=== PATIENT | female | born 1945 | race American Indian/Alaskan Native ===

== ENCOUNTER 2016-10-26 21:27 | Inpatient (IN) | payer MEDICARE ==
[2016-10-27 00:12] LABS: Bilirubin,Urine NEG (Negative); Blood,Urine NEG (Negative); Ketones,Urine TR mg/dL (Negative); Leukocyte Esterase,Urine TR (Negative); Nitrite,Urine NEG (Negative); Protein,Urine <15 mg/dL mg/dL (Negative); Urobilinogen,Urine < 2.0 mg/dL (<2.0)
[2016-10-27 00:22] LABS: Anion Gap 17 mmol/L; BUN/Creatinine Ratio 23.33; Blood Urea Nitrogen 14 mg/dL (7-17); Calcium 9.1 mg/dL (8.4-10.2); Carbon Dioxide 25 mmol/L (22-30); Glucose 107 mg/dL (65-100); Potassium 4.1 mmol/L (3.6-5.0); Sodium 138 mmol/L (137-145)
[2016-10-27 00:26] LABS: RBC,Urine < 1.0 /HPF (0.0-6.0)
[2016-10-27 00:36] LABS: Basophils % (Auto) 0.8 % (0.0-1.8); Eosinophils % (Auto) 0.5 % (0.0-4.3); Hematocrit 37.1 % (30.3-42.9); Hemoglobin 12.1 gm/dl (10.1-14.3); Mean Corpuscular HGB Conc 33 % (30-34); Mean Corpuscular Hemoglobin 28 pg (28-32); Mean Corpuscular Volume 85 fl (79-97); Platelet Count 296 K/mm3 (140-440); Red Blood Count 4.38 M/mm3 (3.65-5.03); Red Cell Distribution Width 13.7 % (13.2-15.2); White Blood Count 9.6 K/mm3 (4.5-11.0)
--- NOTE | 2016-10-27 00:50 | Emergency Department Report ---
HPI - General Chief Complaint: Weakness Time Seen by Provider: 10/27/16 00:22 - HPI HPI: Room 5 Patient is 71-year-old female presenting with chief complaint of weakness. The patient states she was at her [employer] outdoors all day during a parade when she began to feel hot and diaphoretic. Patient states she felt weak this lasted several minutes until she was removed from the heat and had a cold rag placed on her neck. Patient states she gradually began to feel better. Patient denied ever having chest pain or pain of any type. Patient admits she did not drink water throughout the day. Patient currently denies any complaints Location: [see above] Duration: Minutes Quality: Weakness Severity: Moderate Modifying factors: [see above] Context: [see above] Mode of transportation: [not driving] ED Past Medical Hx - Past Medical History Previous Medical History?: Yes Additional medical history: high cholesterol - Surgical History Past Surgical History?: Yes Additional Surgical History: bilateral foot bunions - Family History Family history: no significant - Social History Smoking Status: Never Smoker Substance Use Type: Alcohol (occasional) - Medications Home Medications: Home Medications Medication Instructions Recorded Confirmed Last Taken Type Fexofenadine/Pseudoephedrine 1 mg PO DAILY 10/26/16 10/26/16 10/25/16 History [Meredith-D 24 Hour Tablet] ED Review of Systems ROS: Stated complaint: GENERAL WEAKNESS, FATIGUE Other details as noted in HPI Comment: All other systems reviewed and negative Constitutional: diaphoresis, weakness Eyes: denies: eye pain, eye discharge, vision change ENT: denies: ear pain, throat pain Respiratory: denies: cough, shortness of breath, wheezing Cardiovascular: denies: chest pain, palpitations Endocrine: no symptoms reported Gastrointestinal: denies: abdominal pain, nausea, diarrhea Genitourinary: denies: urgency, dysuria, discharge Musculoskeletal: denies: back pain, joint swelling, arthralgia Skin: denies: rash, lesions Neurological: denies: headache, weakness, paresthesias Psychiatric: denies: anxiety, depression Hematological/Lymphatic: denies: easy bleeding, easy bruising Physical Exam - Physical Exam Vital Signs: Vital Signs 10/26/16 22:10 Temperature 98.1 F Pulse Rate 77 Respiratory 20 Rate Blood Pressure 125/72 [Left] O2 Sat by Pulse 99 Oximetry Physical Exam: GENERAL: The patient is well-developed well-nourished female lying on stretcher not appearing to be in acute distress. [] HEENT: Normocephalic. Atraumatic. Extraocular motions are intact. Patient has moist mucous membranes. NECK: Supple. Trachea midline CHEST/LUNGS: Clear to auscultation. There is no respiratory distress noted. HEART/CARDIOVASCULAR: Regular. There is no tachycardia. There is no gallop rub or murmur. ABDOMEN: Abdomen is soft, nontender. Patient has normal bowel sounds. There is no abdominal distention. SKIN: There is no rash. There is no edema. There is no diaphoresis. NEURO: The patient is awake, alert, and oriented. The patient is cooperative. The patient has normal speech. Cranial nerves II through XII grossly intact, no drift MUSCULOSKELETAL: There is no evidence of acute injury. ED Course Vital Signs 10/26/16 22:10 Temperature 98.1 F Pulse Rate 77 Respiratory 20 Rate Blood Pressure 125/72 [Left] O2 Sat by Pulse 99 Oximetry ED Medical Decision Making - Lab Data Result diagrams: 10/27/16 00:28 10/26/16 23:53 Laboratory Tests 10/26/16 10/26/16 10/26/16 23:53 23:53 Unknown WBC RBC Hgb Hct MCV MCH MCHC RDW Plt Count Lymph % (Auto) Crowley % (Auto) Eos % (Auto) Baso % (Auto) Lymph # Crowley # Eos # Baso # Seg Neutrophils % Seg Neutrophils # Sodium 138 Potassium 4.1 Chloride 100.0 Carbon Dioxide 25 Anion Gap 17 BUN 14 Creatinine 0.6 L Estimated GFR > 60 BUN/Creatinine Ratio 23.33 Glucose 107 H Calcium 9.1 Total Creatine Kinase 160 H CK-MB (CK-2) 4.1 H CK-MB (CK-2) Rel Index 2.5 Troponin T 0.108 H* Urine Color Yellow Urine Turbidity Clear Urine pH 6.0 Ur Specific Noti 1.012 Urine Protein <15 mg/dl Urine Glucose (UA) Neg Urine Ketones Tr Urine Blood Neg Urine Nitrite Neg Urine Bilirubin Neg Urine Urobilinogen < 2.0 Ur Leukocyte Esterase Tr Urine WBC (Auto) 3.0 Urine RBC (Auto) < 1.0 10/27/16 00:28 WBC 9.6 RBC 4.38 Hgb 12.1 Hct 37.1 MCV 85 MCH 28 MCHC 33 RDW 13.7 Plt Count 296 Lymph % (Auto) 15.0 Crowley % (Auto) 7.8 H Eos % (Auto) 0.5 Baso % (Auto) 0.8 Lymph # 1.4 Crowley # 0.8 Eos # 0.1 Baso # 0.1 Seg Neutrophils % 75.9 H Seg Neutrophils # 7.3 Sodium Potassium Chloride Carbon Dioxide Anion Gap BUN Creatinine Estimated GFR BUN/Creatinine Ratio Glucose Calcium Total Creatine Kinase CK-MB (CK-2) CK-MB (CK-2) Rel Index Troponin T Urine Color Urine Turbidity Urine pH Ur Specific Noti Urine Protein Urine Glucose (UA) Urine Ketones Urine Blood Urine Nitrite Urine Bilirubin Urine Urobilinogen Ur Leukocyte Esterase Urine WBC (Auto) Urine RBC (Auto) - EKG Data -: EKG Interpreted by Me EKG shows normal: sinus rhythm Rate: normal - EKG Data When compared to previous EKG there are: previous EKG unavailable Interpretation: other (no ischemic changes seen) - Differential Diagnosis heat Exhaustion, dehydration, ACS, dysrhythmia Critical care attestation.: If time is entered above; I have spent that time in minutes in the direct care of this critically ill patient, excluding procedure time. ED Disposition Clinical Impression: Heat exhaustion, Elevated troponin Disposition: DISCHARGED TO HOME OR SELFCARE Is pt being admited?: Yes Does the pt Need Aspirin: Yes Condition: Fair Instructions: Heat Exhaustion (ED), Fatigue (ED) Additional Instructions: Continue to drink plenty of fluids. Return to the emergency department immediately should you develop worsening symptoms, fever, inability to tolerate food or liquid or any other concerns. Referrals: PRIMARY CARE, [Primary Care Provider] - 3-5 Days Time of Disposition: 01:09 (hospitalist notified)
[2016-10-27 00:57] LABS: Creatine Kinase MB 4.1 ng/mL (0.0-4.0)
[2016-10-27] MEDS ORDERED: ASPIRIN PO ONE (01:09)
[2016-10-27] MEDS ORDERED: ZOFRAN IV PRN (01:32)
[2016-10-27] MEDS ORDERED: SODIUM CHLORIDE FLUSH SYRINGE 10 ML IV PRN (01:32)
[2016-10-27] MEDS ORDERED: DUONEB 0.5 MG-3 MG/3 ML SOLN IH PRN (01:32)
[2016-10-27] MEDS ORDERED: MILK OF MAGNESIA PO PRN (01:32)
[2016-10-27] MEDS ORDERED: TYLENOL PO PRN (01:32)
[2016-10-27] MEDS ORDERED: DULCOLAX PR PRN (01:32)
--- NOTE | 2016-10-27 01:38 | History and Physical Report ---
History of Present Illness Chief complaint: I felt sick, and nearly passed out History of present illness: 71 YO Female with HTN, HLD presents to ED for evaluation. Pt states that she was attending an outdoors event all day during a parade and subsequently became dizzy, sweaty, hot, and nearly passed out. Pt states that symptoms lasted for several minutes and resolved after she was removed from the heat, and had a cold rag placed on her neck. Patient states she gradually began to feel better. Patient denied ever having chest pain or pain of any type. Patient admits she did not drink water throughout the day. Patient currently denies fever, chills, CP, palpitations, NVD, recent ill contacts, prolonged immobility/ travel, leg swelling, calf pain, individual/family history of DVT/PE. Pt seen and evaluated in ED and found to have elevated troponin consistent with NSTEMI. Past History Past Medical History: hypertension, hyperlipidemia Past Surgical History: No surgical history, Other (reviewed) Social history: single. denies: smoking, alcohol abuse, prescription drug abuse Family history: hypertension Medications and Allergies Allergies Allergy/AdvReac Type Severity Reaction Status Date / Time celery Allergy Unknown Verified 10/26/16 21:47 Home Medications Medication Instructions Recorded Confirmed Last Taken Type Fexofenadine/Pseudoephedrine 1 mg PO DAILY 10/26/16 10/26/16 10/25/16 History [Meredith-D 24 Hour Tablet] Active Meds: Active Medications Acetaminophen (Tylenol) 650 mg PO Q4H PRN PRN Reason: Pain MILD(1-3)/Fever >100.5/BOSHC Albuterol/Ipratropium (Duoneb 0.5 Mg-3 Mg/3 Ml Soln) 1 ampul IH Q6HRT PRN PRN Reason: Wheezing Bisacodyl (Dulcolax) 10 mg DE QDAY PRN PRN Reason: Constipation unrelieved by MOM Magnesium Hydroxide (Milk Of Magnesia) 30 ml PO Q4H PRN PRN Reason: Constipation Ondansetron HCl (Zofran) 4 mg IV Q8H PRN PRN Reason: N/V unrelieved by Reglan Sodium Chloride (Sodium Chloride Flush Syringe 10 Ml) 10 ml IV PRN PRN PRN Reason: LINE FLUSH Review of Systems All systems: negative Constitutional: other (dizziness, weakness) Exam - Constitutional Vitals: Temp Pulse Resp BP Pulse Ox 98.1 F 78 20 115/71 99 10/26/16 22:10 10/27/16 00:52 10/26/16 22:10 10/27/16 00:52 10/26/16 22:10 General appearance: Present: mild distress, cachectic - EENT Eyes: Present: PERRL ENT: hearing intact, clear oral mucosa - Neck Neck: Present: supple, normal ROM - Respiratory Respiratory effort: normal Respiratory: bilateral: CTA - Cardiovascular Heart Sounds: Present: S1 & S2. Absent: rub, click - Extremities Extremities: pulses symmetrical, No edema Peripheral Pulses: within normal limits - Abdominal General gastrointestinal: Present: soft, non-tender, non-distended, normal bowel sounds Female genitourinary: Present: normal - Integumentary Integumentary: Present: clear, warm, dry - Musculoskeletal Musculoskeletal: gait normal, strength equal bilaterally - Psychiatric Psychiatric: appropriate mood/affect, intact judgment & insight - Neurologic Neurologic: CNII-XII intact, moves all extremities Results - Labs CBC & Chem 7: 10/27/16 00:28 10/26/16 23:53 Labs: Abnormal lab results 10/26/16 10/26/16 10/27/16 Range/Units 23:53 23:53 00:28 [place] % (Auto) 7.8 H (0.0-7.3) % Seg Neutrophils % 75.9 H (40.0-70.0) % Creatinine 0.6 L (0.7-1.2) mg/dL Glucose 107 H (65-100) mg/dL Total Creatine Kinase 160 H (30-135) units/L CK-MB (CK-2) 4.1 H (0.0-4.0) ng/mL Troponin T 0.108 H* (0.00-0.029) ng/mL Assessment and Plan - Patient Problems (1) NSTEMI (non-ST elevated myocardial infarction) Current Visit: Yes Status: Acute Plan to address problem: Serial Cardiac enzymes, ekg, telemetry, d dimer, echo, stress test, cardiology consulted, lovenox (2) HTN (hypertension) Current Visit: Yes Status: Acute Qualifiers: Hypertension type: H Plan to address problem: copntrolled, monitor bp q shift, continue current therapy (3) HLD (hyperlipidemia) Current Visit: Yes Status: Acute Qualifiers: Hyperlipidemia type: H Plan to address problem: continue statin therapy, low cholesterol diet (4) Malnutrition Current Visit: Yes Status: Acute Plan to address problem: encourage increased protein intake (5) DVT prophylaxis Current Visit: Yes Status: Acute
[2016-10-27] MEDS ORDERED: PROVENTIL IH PRN (01:41)
[2016-10-27 08:26] LABS: Creatine Kinase MB 3.6 ng/mL (0.0-4.0)
[2016-10-27] MEDS ORDERED: LEXISCAN IV ONE ×2 (09:01→09:11)
--- NOTE | 2016-10-27 09:58 | Consultation ---
History of Present Illness Consult date: 10/27/16 Consult reason: syncope History of present illness: Pt seen and evaluated in stress lab Impression Acute vasovagal syncopal episode likely from heat exhaustion/dehydration Pt is now asymptomatic, no history of chest pain ECG sinus without ischemic change Nonspecific troponin elevation HTN Hyperlipidemia Plan Nuclear stress this AM, await completion Past History Past Medical History: hypertension, hyperlipidemia Past Surgical History: No surgical history, Other (reviewed) Social history: single. denies: smoking, alcohol abuse, prescription drug abuse Family history: hypertension Medications and Allergies Allergies Allergy/AdvReac Type Severity Reaction Status Date / Time celery Allergy Unknown Verified 10/26/16 21:47 Home Medications Medication Instructions Recorded Confirmed Last Taken Type Fexofenadine/Pseudoephedrine 1 mg PO DAILY 10/26/16 10/26/16 10/25/16 History [Meredith-D 24 Hour Tablet] Active Meds: Active Medications Acetaminophen (Tylenol) 650 mg PO Q4H PRN PRN Reason: Pain MILD(1-3)/Fever >100.5/BOSCH Albuterol (Proventil) 2.5 mg IH Q6HRT PRN PRN Reason: Shortness Of Breath Bisacodyl (Dulcolax) 10 mg ND QDAY PRN PRN Reason: Constipation unrelieved by MOM Enoxaparin Sodium (Lovenox) 50 mg 1 mg/kg (50 mg) SUB-Q Q12HR JACY Loratadine/Pseudoephedrine Sulfate (Claritin-D 24hr) 1 each PO Q24HR JACY Magnesium Hydroxide (Milk Of Magnesia) 30 ml PO Q4H PRN PRN Reason: Constipation Ondansetron HCl (Zofran) 4 mg IV Q8H PRN PRN Reason: N/V unrelieved by Reglan Pneumococcal Polyvalent Vaccine (Pneumovax 23) 0.5 ml IM .ONCE ONE Stop: 10/27/16 12:01 Sodium Chloride (Sodium Chloride Flush Syringe 10 Ml) 10 ml IV PRN PRN PRN Reason: LINE FLUSH Physical Examination Vital Signs Temp Pulse Resp BP Pulse Ox 98.1 F 77 20 125/72 99 10/26/16 22:10 10/26/16 22:10 10/26/16 22:10 10/26/16 22:10 10/26/16 22:10 General appearance: no acute distress HEENT: Positive: PERRL Neck: Positive: neck supple Cardiac: Positive: Reg Rate and Rhythm, S1/S2. Negative: S3 Lungs: Positive: Normal Exam Neuro: Positive: Grossly Intact Abdomen: Positive: Unremarkable, Soft. Negative: Pulsations/Bruits Results 10/27/16 00:28 10/26/16 23:53 Cardiac Enzymes 10/27/16 Range/Units 07:08 CK-MB (CK-2) 3.6 (0.0-4.0) ng/mL EKG interpretations - EKG Sinus rhythms and dysrhythmias: sinus rhythm
[2016-10-27] MEDS ORDERED: LOVENOX SUB-Q SCH (10:00)
[2016-10-27] MEDS ORDERED: CLARITIN-D 24HR PO SCH (10:00)
[2016-10-27] MEDS ORDERED: PNEUMOVAX 23 IM ONE (12:00)
[2016-10-27 12:13] LABS: Creatine Kinase MB 3.6 ng/mL (0.0-4.0)
[2016-10-27 14:43] VITALS: BP 123/73
--- NOTE | 2016-10-27 14:47 | Discharge Summary ---
Providers - Providers Date of Admission: 10/27/16 01:32 Date of discharge: 10/27/16 Attending physician: SANTO BLACKMON MD 10/27/16 07:38 Consult to Physician [CONS] Routine Consulting Provider: NANCY VALLE Reason For Exam: nstemi Place consult to:: Dr. Valle Notified:: Ervin BAKER Phone number called:: Was contact made?: Yes If yes, spoke with:: answering service Time called:: 08:30 Primary care physician: W[employer]PERATOR Hospitalization Reason for admission: CHEST PAIN Condition: Fair Hospital course: 71 YO Female with HTN, HLD presents to ED for evaluation. Pt states that she was attending an outdoors event all day during a parade and subsequently became dizzy, sweaty, hot, and nearly passed out. Pt states that symptoms lasted for several minutes and resolved after she was removed from the heat, and had a cold rag placed on her neck. Patient states she gradually began to feel better. Patient denied ever having chest pain or pain of any type. Patient admits she did not drink water throughout the day. Patient currently denies fever, chills, CP, palpitations, NVD, recent ill contacts, prolonged immobility/ travel, leg swelling, calf pain, individual/family history of DVT/PE. Pt seen and evaluated in ED and found to have elevated troponin consistent with NSTEMI. PATIENT UNDERWENT STRESS TEST AND WAS SEEN BY CARDIOLOGY WITH THE FOLLOWING NOTATION Nuclear stress negative for ischemia, EF > 70%, cardiac risk low. She was noted to have elevated cholesterol but does have elevated HDL also. Discharge Diagnosis: * Acute vasovagal syncopal episode likely from heat exhaustion/dehydration * NSTEMI TYPE 2 * HTN * Dyslipidemia Disposition: DISCHARGED TO HOME OR SELFCARE Time spent for discharge: 31 mins Core Measure Documentation - Palliative Care Palliative Care/ Comfort Measures: Not Applicable - Core Measures Any of the following diagnoses?: none - VTE Discharge Requirements Deep Vein Thrombosis/Pulmonary Embolism Present on Admission: No Exam - Physical Exam Narrative exam: VITAL SIGNS: Reviewed. GENERAL: The patient appeared well nourished and normally developed. Vital signs as documented. HEAD: No signs of head trauma. EYES: Pupils are equal. Extraocular motions intact. EARS: Hearing grossly intact. MOUTH: Oropharynx is normal. NECK: No adenopathy, no JVD. CHEST: Chest with clear breath sounds bilaterally. No wheezes, rales, or rhonchi. CARDIAC: Regular rate and rhythm. S1 and S2, without murmurs, gallops, or rubs. VASCULAR: No Edema. Peripheral pulses normal and equal in all extremities. ABDOMEN: Soft, without detectable tenderness. No sign of distention. No rebound or guarding, and no masses palpated. Bowel Sounds normal. MUSCULOSKELETAL: Good range of motion of all major joints. Extremities without clubbing, cyanosis or edema. NEUROLOGIC EXAM: Alert and oriented x 3. No focal sensory or strength deficits. Speech normal. Follows commands. PSYCHIATRIC: Mood normal. SKIN: No rash or lesions. - Constitutional Vitals: Temp Pulse Resp BP Pulse Ox 98.6 F 100 H 18 123/73 100 10/27/16 12:35 10/27/16 12:35 10/27/16 12:35 10/27/16 12:35 10/27/16 12:34 Plan Activity: advance as tolerated, fall precautions Diet: low fat Additional Instructions: Rest at home. Drink plenty of fluids. Follow up with: PRIMARY MD ALESIA [Primary Care Provider] - 3-5 Days
== END 2016-10-27 16:18 | disposition home or self-care (01) | DRG 922 ==
LOC: ED 21:27 → 4A 10-27 01:32
PROVIDERS: ADMIT Internal Medicine; ATTEND Internal Medicine
DX: T67.5XXA Heat exhaustion, unspecified, initial encounter (principal); I21.4 Non-ST elevation (NSTEMI) myocardial infarction; E46 Unspecified protein-calorie malnutrition; E78.5 Hyperlipidemia, unspecified; I10 Essential (primary) hypertension; R55 Syncope and collapse; E86.0 Dehydration; Z82.49 Family history of ischemic heart disease and other diseases of the circulatory system; Z68.20 Body mass index [BMI] 20.0-20.9, adult
CPT/HCPCS: 36415; 78452; 80048; 80053; 80061; 81001; 82550; 82553; 84439; 84443; 84484; 85025; 85379; 90732; 93005; 93010; 93017; 93306; A9502; J1650; J2785